=== PATIENT | female | born 1950 | race Caucasian/White ===

== ENCOUNTER → 2019-03-07 09:22 | Outpatient (CLI) | payer MEDICARE, OTHER, SELFPAY ==
--- NOTE | 2019-03-07 | DI.MG.S_ITS ---
BILATERAL DIGITAL SCREENING MAMMOGRAM 3D/2D WITH CAD: 03/07/2019 CLINICAL: Routine screening. Family history of breast cancer. Comparison is made to exams dated: 07/28/2017 mammogram, 10/22/2014 mammogram, and 10/19/2013 mammogram - [facility]. There are scattered fibroglandular elements in both breasts. Current study was also evaluated with a Computer Aided Detection (CAD) system. There is a new cluster of fine calcifications in the right breast at 1 o'clock anterior depth. There is a possible developing cluster of fine dystrophic calcifications in the left breast anterior depth medial region seen on the craniocaudal view only. No other significant masses or calcifications are seen in either breast. IMPRESSION: INCOMPLETE: NEEDS ADDITIONAL IMAGING EVALUATION The new cluster of fine calcifications in the right breast at 1 o'clock anterior depth is indeterminate. Spot magnification and lateral views are recommended. The possible developing cluster of fine dystrophic calcifications in the left breast anterior depth medial region seen on the craniocaudal view only is indeterminate. Spot magnification and lateral views are recommended. This exam was interpreted at Station ID: [id number]. NOTE: For mammograms, a report in lay terms will be sent to the patient. Approximately 15% of breast malignancies will not be visualized mammographically. In the management of a palpable breast mass, a negative mammogram must not discourage biopsy of a clinically suspicious lesion. Electronically Signed By: Bhavna velázquez/:03/07/2019 10:26:05 letter sent: Additional Imaging Needed ACR BI-RADS Category 0: Incomplete 3340F
== END ==
PROVIDERS: PCP Family Medicine; Visit Provider Family Medicine
DX: Z12.31 Encounter for screening mammogram for malignant neoplasm of breast (principal); Z80.3 Family history of malignant neoplasm of breast
CPT/HCPCS: 77063; 77067

== ENCOUNTER → 2019-03-30 08:49 | Outpatient (CLI) | payer MEDICARE, OTHER, SELFPAY ==
--- NOTE | 2019-03-30 | DI.US.S_ITS ---
LIMITED ULTRASOUND OF LEFT BREAST: 03/30/2019 CLINICAL: Patient returns today to evaluate calcifications in the left breast. Comparison is made to exams dated: 03/30/2019 mammogram, 03/07/2019 mammogram, 07/28/2017 mammogram, 10/22/2014 mammogram, 10/19/2013 mammogram, and 09/27/2011 mammogram - [facility]. Color flow and real-time ultrasound of the left breast medial aspect were performed. Duncan scale images of the real-time examination were reviewed. No underlying breast mass or abnormality is identified. There is no ultrasound correlate for the previously noted cluster of fine dystrophic calcifications in the left breast anterior depth medial region seen on the craniocaudal view only on comparison screening mammogram of 03/07/19 which persisted but were less prominent on additional diagnostic views performed earlier today 03/30/19. IMPRESSION: PROBABLY BENIGN No ultrasound correlate for the previously noted cluster of fine dystrophic calcifications in the left breast anterior depth medial region seen on screening and diagnostic mammography. A follow-up mammogram and possible ultrasound in 6 months is recommended to demonstrate stability. The patient is advised to monitor her breasts and to return sooner for re-evaluation should she feel anything grow or change. This exam was interpreted at Station ID: [id number]. Electronically Signed By: Sathish Parsons M.D. ecl/:03/30/2019 11:54:42 letter sent: Followup Recommended Ultrasound BI-RADS: 3 Probably benign
--- NOTE | 2019-03-30 | DI.MG.S_ITS ---
BILATERAL DIGITAL DIAGNOSTIC MAMMOGRAM 3D/2D WITH ADDITIONAL VIEWS: 03/30/2019 CLINICAL: Additional evaluation requested from prior study. Comparison is made to exams dated: 03/07/2019 mammogram, 07/28/2017 mammogram, and 10/22/2014 mammogram - [facility]. There are scattered fibroglandular elements in both breasts. Previously identified cluster of fine calcifications in the right breast at 1 o'clock anterior depth and cluster of fine dystrophic calcifications in the left breast anterior depth medial region seen on the craniocaudal view only on comparison screening mammogram of 03/07/19 persist but are less prominent on additional diagnostic views. IMPRESSION: INCOMPLETE: NEEDS ADDITIONAL IMAGING EVALUATION Previously identified cluster of fine calcifications in the right breast at 1 o'clock anterior depth and cluster of fine dystrophic calcifications in the left breast anterior depth medial region seen on the craniocaudal view only on comparison screening mammogram of 03/07/19 persist but are less prominent on additional diagnostic views. A bilateral diagnostic targeted ultrasound is recommended for further evaluation. This exam was interpreted at Station ID: [id number]. NOTE: For mammograms, a report in lay terms will be sent to the patient. Approximately 15% of breast malignancies will not be visualized mammographically. In the management of a palpable breast mass, a negative mammogram must not discourage biopsy of a clinically suspicious lesion. Electronically Signed By: Sathish Parsons M.D. ecl/:03/30/2019 10:37:20 ACR BI-RADS Category 0: Incomplete 3340F
--- NOTE | 2019-03-30 | DI.US.S_ITS ---
LIMITED ULTRASOUND OF RIGHT BREAST: 03/30/2019 CLINICAL: Patient returns today to evaluate calcifications in the right breast. Comparison is made to exams dated: 03/30/2019 mammogram, 03/07/2019 mammogram, 07/28/2017 mammogram, 10/22/2014 mammogram, 10/19/2013 mammogram, and 09/27/2011 mammogram - [facility]. Color flow and real-time ultrasound of the right breast 11-1 o'clock region were performed. Duncan scale images of the real-time examination were reviewed. No underlying breast mass or abnormality is identified. There is no ultrasound correlate for the previously noted cluster of fine calcifications in the right breast at 1 o'clock anterior depth on comparison screening mammogram of 03/07/19 and comparison diagnostic mammogram of 03/30/19. IMPRESSION: PROBABLY BENIGN No ultrasound correlate for the previously noted cluster of fine calcifications in the right breast at 1 o'clock anterior depth on comparison screening mammogram of 03/07/19 and comparison diagnostic mammogram of 03/30/19. A follow-up mammogram and possible ultrasound in 6 months is recommended to demonstrate stability. The patient is advised to monitor her breasts and to return sooner for re-evaluation should she feel anything grow or change. This exam was interpreted at Station ID: [id number]. Electronically Signed By: Sathish Parsons M.D. ecl/:03/30/2019 11:52:19 letter sent: Followup Recommended Ultrasound BI-RADS: 3 Probably benign
== END ==
PROVIDERS: PCP Family Medicine; Visit Provider Family Medicine
DX: R92.8 Other abnormal and inconclusive findings on diagnostic imaging of breast (principal); R92.1 Mammographic calcification found on diagnostic imaging of breast
CPT/HCPCS: 76642; 77066; G0279

== ENCOUNTER → 2019-05-25 12:08 | Outpatient (CLI) | payer MEDICARE, OTHER, SELFPAY ==
--- NOTE | 2019-05-25 | DI.US.S_ITS ---
PROCEDURE: US ABDOMEN COMPLETE INDICATIONS: PAIN TECHNIQUE: Real-time scanning was performed of the abdominal and retroperitoneal organs, with image documentation. COMPARISON: None. FINDINGS: Liver: Liver is diffusely increased in echogenicity. No focal hepatic abnormalities identified. Normal hepatic size. Gallbladder: No gallstones identified. Normal gallbladder wall. No pericholecystic fluid. Negative sonographic Holguin sign. Biliary ducts: Intrahepatic bile ducts are non-dilated. Extrahepatic bile duct caliber measures 5.1 mm. Normal is 6-7 mm or less in diameter, or 10 mm or less post-cholecystectomy. Pancreas: Visualized portions of the pancreas are sonographically normal. Spleen: Spleen is normal in size and homogeneous in echotexture. Kidneys: Kidneys are normal in size and echotexture. Right kidney measures 11.7 cm long; left kidney measures 10.6 cm long. No hydronephrosis and a 5 mm left renal calcification and 2.7 cm left renal cyst. left renal calcification. 2.7 cm simple left renal cyst.. No solid masses. Aorta: Visualized aorta is normal in caliber at less than 3 cm. Iliacs: Proximal common iliac arteries are normal in caliber at less than 2.5 cm. IVC: Intrahepatic inferior vena cava is patent. Miscellaneous: No free abdominal fluid. IMPRESSION: 1. Increased hepatic echogenicity noted possibly related to hepatic steatosis but other sources of hepatocellular disease including hepatic cirrhosis cannot be excluded. Recommend clinical correlation. 2. 5 mm nonobstructing left renal calcification and left renal cyst. Dictated by: Cesar FRANKEL Interpreted: Dwight Damico MD on 05/25/2019 at 16:49 Approved by: Dwight Damico M.D. on 05/25/2019 at 19:46
== END ==
PROVIDERS: PCP Family Medicine; Visit Provider Family Medicine
DX: R10.9 Unspecified abdominal pain (principal); N28.1 Cyst of kidney, acquired; N20.0 Calculus of kidney
CPT/HCPCS: 76700

== ENCOUNTER → 2019-06-07 13:17 | Outpatient (CLI) | payer MEDICARE, OTHER, SELFPAY ==
--- NOTE | 2019-06-07 | DI.CT.S_ITS ---
PROCEDURE: CT ABDOMEN PELVIS W CON INDICATIONS: Unspecified abdominal pain TECHNIQUE: After the administration of oral and intravenous contrast, 5 mm thick sections acquired from the diaphragms to the symphysis. 5 mm thick coronal and sagittal reformats were performed. For radiation dose reduction, the following was used: automated exposure control, adjustment of mA and/or kV according to patient size. COMPARISON: [facility], , US ABDOMEN COMPLETE, 05/25/2019, 12:15. FINDINGS: Image quality: Excellent. ABDOMEN: Lung bases: Lung bases are clear. Heart size is normal. Solid organs: Liver demonstrates hepatomegaly with steatosis. Gallbladder is unremarkable. Biliary system is non-dilated. Pancreas enhances normally. Spleen is normal in size and enhancement. No adrenal nodules. Kidneys are normal in size and enhancement, without hydronephrosis. Left renal cyst is present. Nonobstructing 4 mm left renal calculus is present. Peritoneum and bowel: Stomach, small bowel, and colon loops are normal in caliber and wall thickness. No free fluid or air. Moderate stool. No obstruction. Nodes and vessels: No retroperitoneal or mesenteric adenopathy. Aorta and inferior vena cava are normal in caliber. Miscellaneous: No ventral hernias. PELVIS: Genitourinary: Bladder wall thickness is normal. Miscellaneous: No inguinal hernias or adenopathy. Bones: No suspicious bony lesions. No vertebral body compression fractures. IMPRESSION: 1. Moderate stool suggestive of constipation. 2. Hepatic steatosis and mild hepatomegaly. Dictated by: Ani Oneal M.D. on 06/07/2019 at 17:52 Approved by: Ani Oneal M.D. on 06/07/2019 at 17:54
== END ==
PROVIDERS: PCP Family Medicine; Visit Provider Family Medicine
DX: R10.9 Unspecified abdominal pain (principal); K76.0 Fatty (change of) liver, not elsewhere classified; R16.0 Hepatomegaly, not elsewhere classified
CPT/HCPCS: 74177; Q9967

== ENCOUNTER → 2019-06-25 12:19 | Outpatient (CLI) | payer MEDICARE, OTHER, SELFPAY ==
--- NOTE | 2019-06-25 12:22 | DI.CT.S_ITS ---
PROCEDURE: CT ANGIO ABDOMEN PELVIS INDICATIONS: ABDOMINAL PAIN, FAMILY HISTORY OF INTESTINAL INFARCT TECHNIQUE: After the administration of intravenous contrast, 2.5 mm sections acquired from the diaphragm to the iliac crests. 10 mm maximum intensity projection (MIP) coronal and sagittal reformats were then performed. For radiation dose reduction, the following was used: automated exposure control. COMPARISON: [facility], CT, CT ABDOMEN PELVIS W CON, 06/07/2019, 14:04. FINDINGS: Image quality: Excellent. Extravascular tissues: Lung bases are clear. Heart size is normal. Liver is normal in size and enhancement. Gallbladder appears normal. Biliary system is non dilated. Pancreas enhances normally. Spleen is normal in size and enhancement. No adrenal nodules. Kidneys are normal in size and enhancement, without hydronephrosis. Non-opacified bowel loops demonstrate normal wall thickness and caliber. No free fluid or air. No retroperitoneal or mesenteric adenopathy. No ventral hernias. No suspicious bony abnormalities. No vertebral body compression fractures. Abdominal aorta: Normal in caliber, no evidence of stenosis involving the celiac axis or superior mesenteric artery. The renal arteries are patent and the inferior mesenteric artery is patent extending into the left lower quadrant. Mesenteric arteries: Normal. Renal arteries: Normal. IMPRESSION: Excellent visualization of the aorta and its main tributaries. The celiac access and superior mesenteric artery and also the inferior mesenteric artery are each widely patent and normal in caliber. No appreciable atherosclerotic calcific or soft plaque is present. No aneurysm is found. Excellent visualization of the solid and hollow organs of the abdomen and pelvis. Dictated by: Dwight Damico M.D. on 06/25/2019 at 14:58 Approved by: Dwight Damico M.D. on 06/25/2019 at 15:05
[2019-06-25 12:54] LABS: Estimated Glomerular Filt Rate > 60.0 mL/min (>60)
== END ==
PROVIDERS: Family Provider Family Medicine; PCP Family Medicine; Visit Provider Surgery
DX: R10.9 Unspecified abdominal pain (principal); Z83.79 Family history of other diseases of the digestive system
CPT/HCPCS: 36415; 74174; 82565; Q9967

== ENCOUNTER 2019-06-28 20:57 | Emergency (ER) | payer MEDICARE, OTHER, SELFPAY ==
[2019-06-28 21:11] VITALS: BP 139/84; PULSE 68; RESP 17; TEMP 36.6; O2SAT 96
[2019-06-28 23:45] VITALS: BP 131/75; PULSE 65; RESP 18; TEMP 36.4; O2SAT 96
--- NOTE | 2019-06-29 00:18 | ED_ITS ---
HPI - Headache General Chief Complaint: Headache Stated Complaint: reaction to colonoscopy prep Time Seen by Provider: 06/29/19 00:18 Source: patient and family (daughter) Mode of arrival: Ambulatory Limitations: no limitations History of Present Illness HPI Narrative: This is a 69-year-old female who comes to the emergency department with complaint of possible reaction or colonoscopy prep patient states she started her prep about 4:00 a.m. this evening she was having diarrhea around she can evening she developed headache. She states it is bad but not the worse headache of her life. She has had similar headache on new year's. Patient has been afebrile. She denies any vision changes, just some mild nausea no vomiting. Denies any chest pain or pressure. She was feeling anxious. She has not had any black or bloody stools but has been having diarrhea secondary to the prep. She drank about half of the prep so far she was using GoLYTELY. No urinary symptoms. No numbness, tingling or weakness, no difficulty with speech or movement. No vision changes, no photophobia. Patient contacted Dr. Rizzo who did recommend ibuprofen and rest, patient continued to have symptoms and she was encouraged to come to the ER for evaluation. Patient is on estradiol, nortriptyline. Of her esophagus she has had hand surgery. No tobacco, occasional alcohol, no illicit. Related Data Home Medications Medication Instructions Recorded Confirmed aspirin 325 mg tablet,delayed 325 mg PO DAILY 06/21/19 06/21/19 release estradiol 1 gram VAG 2XW 06/21/19 06/21/19 metronidazole 0.75 % topical cream 1 applictn TOP BID 06/21/19 06/21/19 nortriptyline 10 mg capsule 10 mg PO DAILY 06/21/19 06/21/19 Allergies Allergy/AdvReac Type Severity Reaction Status Date / Time ciprofloxacin AdvReac Cramping Verified 06/28/19 21:16 of the Muscles Review of Systems Review of Systems ROS Unobtainable: All systems reviewed & are unremarkable except as noted in HPI and below Patient History Medical History Spasm of esophagus (Acute) Surgical History History of hand surgery (Acute) Family History (Updated 06/21/19 @ 15:46 by Mami Garza LPN) Family/Other Cancer Social History Smoking Status: Never smoker alcohol intake: current Smoking Status: Never smoker alcohol intake frequency: holidays/special occasions only Substance Use Type: does not use Exam Narrative Exam Narrative: GEN: well nourished, well appearing female, alert and oriented x 3, patient appears to be in mild distress. Patient was initially sleeping but awakens easily. HEENT: Atraumatic, pupils are equal round reactive to light, extraocular movements are intact, no photophobia, nares are clear, TMs are clear with no fluid, there is no conjunctival pallor. Throat is clear without any exudates, erythema, tonsillar enlargement or uvular deviation, no facial droop. No meningeal signs. HEART: Regular rate and rhythm without murmur, clicks, rubs. LUNGS:Lungs clear to auscultation, no wheezes, rales, crackles, chest moves symmetrically ABD:bowel sounds normal, soft, non-tender, no guarding, rebound, rigidity, no masses noted, no hepatosplenomegaly :No CVA tenderness MSCL: Non-tender, no muscle atrophy, muscles strength 5/5 upper and lower extremities, full range of motion, normal gait NEURO:CN 2-12 intact, sensation normal, reflexes 2/4 upper and lower extremities. finger nose finger test normal, heel chowdhury test normal SKIN: No rashes, no petechiae. Initial Vital Signs Initial Vital Signs: Vital Signs Temperature 98 F 06/28/19 21:11 Pulse Rate 68 06/28/19 21:11 Respiratory Rate 17 06/28/19 21:11 Blood Pressure 139/84 06/28/19 21:11 Pulse Oximetry 96 06/28/19 21:11 Scores NIH Stroke Scale Level of Conciousness: Alert, keenly responsive Open/close eyes, close hand: Performs both tasks correctly Best gaze horizontal: Normal Visual callahan: No visual loss Facial palsy: Normal symetrical movement Left arm drift: No drift for full 10 sec Right arm drift: No drift for full 10 sec Left leg drift: No drift for full 10 sec Right leg drift: No drift for full 10 sec Limb ataxia: Absent Sensory on face/arms/legs: Normal, no sensory loss Best language: No aphasia, normal Dysarthria: Normal Extinction or inattention: No abnormality Course Vital Signs Vital signs: Vital Signs - 8 hr 06/28/19 23:45 Temperature 97.5 F L Pulse Rate 65 Respiratory Rate 18 Blood Pressure [Right Arm] 131/75 Pulse Oximetry 96 MDM - Headache MDM Narrative Medical decision making narrative: Discussed with patient she states her hea dache has almost entirely resolved and she is comfortable at this time. Discussed that I of amount of sure if this could be an adverse effect from the GoLYTELY prep. Patient states headaches have been noted on the side effect profile that she read. We discussed possibly doing additional workup and patient defers further eval at this time. Patient does not have any red flag symptoms at this time. We did discuss strict return precautions and if she has any discomfort or changes that make her concerned she return for re-evaluation at any time. Discharge Plan Departure Patient Disposition: Home Clinical Impression: Headache Discharge Date/Time: 06/29/19 00:50 Instructions: DI for Headache Activity Restrictions/Additional Instructions: Follow-up with your physician tomorrow for recheck. You may take an additional dose of ibuprofen and/or Tylenol overnight. Make sure you are drinking plenty of fluids. Return to the ER for fevers greater 100.4 F, sudden severe headaches, rapidly worsening headache, vision changes, persistent vomiting, passing out, persistent vomiting, new chest, shortness of breath, abdominal pain, new weakness, numbness or difficulty with movement or speech, black or bloody stools or other new or concerning symptoms. Prescriptions: No Action nortriptyline 10 mg capsule 10 mg PO DAILY RF: 0 estradiol [Estrace] 0.01 % (0.1 mg/gram) cream 1 gram VAG 2XW RF: 0 metronidazole 0.75 % cream 1 applictn TOP BID RF: 0 aspirin 325 mg tablet,delayed release (DR/EC) 325 mg PO DAILY RF: 0 Referrals: Roverto Watson MD [Primary Care Provider] - Alexandra Rizzo MD [Physician] -
== END 2019-06-29 00:50 | disposition home or self-care (01) ==
PROVIDERS: Emergency Provider Emergency Medicine; PCP Family Medicine; Referring Provider Surgery
DX: R51 Headache (principal); R19.7 Diarrhea, unspecified
CPT/HCPCS: 45380; 99152; 99153; 99281; 99282

== ENCOUNTER 2019-06-29 10:42 | Day surgery (SDC) | payer MEDICARE, OTHER, SELFPAY ==
[2019-06-29] VITALS (11 sets, daily range): BP systolic 94–124; BP diastolic 53–79; PULSE 60–71; RESP 11–20; TEMP 35.8–36.7; O2SAT 96–99; BMI 22.2
--- NOTE | 2019-06-29 | PATH_ITS ---
[facility] Accession Number: [id number] . 01 Material submitted: . colon - RANDOM SIGMOID COLON BIOPSIES . 02 Diagnosis: Sigmoid Colon, Random Biopsies: Colonic mucosa with no diagnostic abnormality. Negative for active, chronic, and microscopic colitis. Negative for dysplasia and malignancy. . MRV 07/02/2019 1144 Local . 02 Electronically signed: . Erendira Sharma MD, Pathologist NPI- [id number] . 01 Gross description: . RANDOM SIGMOID COLON BIOPSIES: Received in formalin are 3 fragment(s) of perry, soft tissue measuring 0.1 x 0.1 x 0.1 cm to 0.3 x 0.3 x 0.2 cm submitted entirely in 1 cassette(s) /[facility] [place] 06/29/20191 Local . 02 Pathologist provided ICD-10: R10.9 . 02 CPT . 321687 Performed at: 01 [facility] [address] [facility], [place], [place] [id number] MD Meng Meyers MD Phone: [phone] Performed at: 02 [facility] [address] [place], [place] [id number] MD Erendira Sharma MD Phone: [phone]
[2019-06-29] MEDS: SODIUM CHLORIDE 0.9% 1,000 ML 200 ML IV ×2 (11:23→12:42)
--- NOTE | 2019-06-29 11:46 | PM.OP.ENDO ---
Operative Date/Time/Diagnoses Date of procedure: 06/29/19 Time of procedure: 11:55 Pre-op diagnosis: Abdominal pain, change in bowel habits Procedure & Clinicians Study performed: Diagnostic colonoscopy, random biopsies with cold forceps in the sigmoid colon Same procedure as scheduled: Yes Indications: This is a patient with new onset left lower quadrant abdominal pain and explosive diarrhea starting a few months ago Surgeon: Alexandra Rizzo Procedure Notes SCOAP/Timeout: Performed Procedure in detail: The patient was brought to the room and placed in left lateral decubitus position with all bony prominences padded. A time-out was performed and then the patient was given procedural sedation starting with 2 mg of Versed and 100 mcg of fentanyl. Total of 4 mg of Versed and 150 micro g of fentanyl were used for the entire procedure. Vitals were monitored throughout the procedure and remained stable. Once adequately sedated the procedure was begun. A rectal exam was performed revealing no abnormalities. The colonoscope was then introduced to the rectum and advanced to the cecum in the usual fashion. The cecum was identified by the appendiceal orifice, the mucosal tri-fold, and the ileocecal valve. The scope was then retracted while rotating side to side and examining each mucosal fold. No significant abnormalities were seen to the entire colon. Normal mucosa was seen, normal haustral markings, and mucosal folds were seen. Random biopsies were taken in the sigmoid colon, due to the patient's complaint of new onset diarrhea and abdominal pain. At the conclusion of the procedure retroflexion was performed and small grade 1-2 internal hemorrhoids without stigmata of bleeding were seen. The scope was then withdrawn from the rectum the procedure was concluded. The patient tolerated the procedure well and was transferred to the PACU in stable condition. Scope withdrawal time: 12 Sedation minutes: 29 Specimen(s): other (Random biopsies of sigmoid colon) Complications: none Impression: Very normal appearing colon Post-procedure Recommendations: Colonscopy in 10 years and Other recommendation (Follow-up in 2 weeks to discuss biopsy results and to review other recommendation) Follow up: weeks (Two) Disposition: PACU
--- NOTE | 2019-06-29 11:46 | PM.PREOP ---
Pre-operative Note Interval Note History & Physical reviewed/Exam performed by Physician: Yes Changes to H&P: No ASA Class (for procedural sedation): II
[2019-06-29] MEDS: MIDAZOLAM 5 MG/5 ML VIAL IV (12:23)
[2019-06-29] MEDS: fentaNYL 250 MCG/5 ML INJ IV (12:24)
== END 2019-06-29 13:24 | disposition home or self-care (01) ==
PROVIDERS: PCP Family Medicine; Visit Provider Surgery
PROC: 0DJD8ZZ Inspection of Lower Intestinal Tract, Via Natural or Artificial Opening Endoscopic (ICD-10-PCS; CPT 45378; principal; 2019-06-29 11:45)
DX: R10.9 Unspecified abdominal pain (principal); R19.4 Change in bowel habit
CPT/HCPCS: 45380; 99152; 99153; J2250; J3010

== ENCOUNTER → 2019-11-09 10:21 | Outpatient (CLI) | payer MEDICARE, OTHER, SELFPAY ==
[2019-11-10 20:37] LABS: Endomysial AB IGA Negative (Negative)
[2019-11-11 15:13] LABS: Anti Gliadin IgG Ab 2 units (0-19); Gliadin Gluten IgA 7 units (0-19)
== END ==
PROVIDERS: PCP Family Medicine; Referring Provider Internal Medicine Gastroenterology; Visit Provider Internal Medicine Gastroenterology
DX: R19.4 Change in bowel habit (principal); R10.9 Unspecified abdominal pain
CPT/HCPCS: 36415; 83516; 86255

== ENCOUNTER → 2019-11-10 11:00 | Outpatient (CLI) | payer MEDICARE, OTHER, SELFPAY ==
[2019-11-13 12:08] LABS: Calprotectin, Stool 32 ug/g (0-120)
== END ==
PROVIDERS: PCP Family Medicine; Referring Provider Internal Medicine Gastroenterology; Visit Provider Internal Medicine Gastroenterology
DX: R19.4 Change in bowel habit (principal); R10.9 Unspecified abdominal pain
CPT/HCPCS: 83993

== ENCOUNTER → 2019-12-07 09:09 | Outpatient (CLI) | payer MEDICARE, OTHER, SELFPAY ==
--- NOTE | 2019-12-07 | DI.CT.S_ITS ---
PROCEDURE: CT ABDOMEN PELVIS W CON INDICATIONS: Abdominal distension, change in bowel movements TECHNIQUE: After the administration of intravenous contrast, 5 mm thick sections acquired from the diaphragm to the symphysis. 5 mm coronal and sagittal reformats were acquired. For radiation dose reduction, the following was used: automated exposure control, adjustment of mA and/or kV according to patient size. COMPARISON: [facility], CT, CT ABDOMEN PELVIS W CON, 06/07/2019, 14:04. FINDINGS: Image quality: Excellent. ABDOMEN: Lung bases: Lung bases are clear. Heart size is normal. Solid organs: Liver is normal in size and enhancement. Diffusely decreased hepatic density. Gallbladder is within normal limits. Biliary system is non dilated. Pancreas enhances normally. Spleen is normal in size and enhancement. No adrenal nodules. Kidneys demonstrate normal size and enhancement, without hydronephrosis. Nonobstructing calculi within the left interpolar kidney measuring 6 mm and within the superior pole left kidney measuring 2 mm are present. Peritoneum and bowel: Bowel loops demonstrate normal wall thickness and caliber. There is fluid throughout the stomach, small bowel, and right colon. Moderate stool throughout the remainder of the colon. Appendix is not seen. No evidence of appendicitis. No free fluid or air. Nodes and vessels: No retroperitoneal or mesenteric adenopathy by size criteria. Aorta and inferior vena cava are normal in size. Miscellaneous: No ventral hernias. PELVIS: Genitourinary: Bladder wall thickness is normal. Miscellaneous: No inguinal hernias or adenopathy. Bones: No suspicious bony lesions. No vertebral body compression fractures. IMPRESSION: 1. Fluid filled bowel, compatible with gastroenteritis. 2. Nonobstructing left renal calculi. 3. Hepatic steatosis. 4. Appendix not seen. No evidence of appendicitis. Dictated by: Cedric Riggs M.D. on 12/07/2019 at 11:04 Approved by: Cedric Riggs M.D. on 12/07/2019 at 11:07
[2019-12-07 09:49] LABS: BUN Creatinine Ratio 14.5 (6-22); Blood Urea Nitrogen 8 mg/dL (7-17); Estimated Glomerular Filt Rate > 60.0 mL/min (>60)
== END ==
PROVIDERS: PCP Family Medicine; Referring Provider Internal Medicine Gastroenterology; Visit Provider Internal Medicine Gastroenterology
DX: R19.4 Change in bowel habit (principal); R14.0 Abdominal distension (gaseous); R10.9 Unspecified abdominal pain; N20.0 Calculus of kidney; K76.0 Fatty (change of) liver, not elsewhere classified
CPT/HCPCS: 36415; 74177; 82565; 84520; Q9967

== ENCOUNTER → 2020-01-23 14:05 | Outpatient (CLI) | payer MEDICARE, OTHER, SELFPAY ==
--- NOTE | 2020-01-23 14:19 | DI.MG.S_ITS ---
Patient Name: MARLENI COVARRUBIAS date: 1950 Sex: F Attending Physician: Shirley Indications: Date: 01/23/2020 14:10 At the request of: MERLYN SCHAFFER Procedure: MM diagnostic mammo BI BILATERAL DIGITAL DIAGNOSTIC MAMMOGRAM 3D/2D SHORT-TERM FOLLOW-UP: 01/23/2020 CLINICAL: Patient returns for short term follow up of bilateral breasts. Comparison is made to exams dated: 03/30/2019 mammogram, 03/07/2019 mammogram, 07/28/2017 mammogram, and 10/22/2014 mammogram - [facility]. There are scattered fibroglandular elements in both breasts. There is a group of fine punctate calcifications in the right breast at 1 o'clock anterior depth. This is not significantly changed. The previously described possible developing cluster of fine punctate calcifications in the left breast anterior depth medial region seen on the craniocaudal view only appears less prominent. No other significant masses or calcifications are seen in either breast. IMPRESSION: PROBABLY BENIGN The grouped fine punctate calcifications in the right breast at 1 o'clock anterior depth have remained stable for approximately one year and are probably benign. The previously described possible grouped fine punctate calcifications in the left breast anterior depth medial region seen on the craniocaudal view only appear less prominent and are probably benign. A follow-up mammogram to include spot magnification views in 12 months is recommended. Findings and recommendations were conveyed to the patient during today's visit. This exam was interpreted at Station ID: [id number]. NOTE: For mammograms, a report in lay terms will be sent to the patient. Approximately 15% of breast malignancies will not be visualized mammographically. In the management of a palpable breast mass, a negative mammogram must not discourage biopsy of a clinically suspicious lesion. Continued Report - Page 2 of 2 Patient Name: MARLENI COVARRUBIAS date: 1950 Sex: F Attending Physician: Shirley Indications: Date: 01/23/2020 14:10 At the request of: MERLYN SCHAFFER Procedure: MM diagnostic mammo BI Electronically Signed By: Cain Ochoa M.D. aty/:01/23/2020 14:54:45 letter sent: Followup Recommended ACR BI-RADS Category 3: Probably benign 3343F
== END ==
PROVIDERS: PCP Family Medicine; Referring Provider Family Medicine; Visit Provider Family Medicine
DX: R92.8 Other abnormal and inconclusive findings on diagnostic imaging of breast (principal); R92.1 Mammographic calcification found on diagnostic imaging of breast
CPT/HCPCS: 77066; G0279

== ENCOUNTER → 2020-02-26 11:38 | Outpatient (CLI) | payer MEDICARE, OTHER, SELFPAY ==
--- NOTE | 2020-02-26 | DI.US.S_ITS ---
PROCEDURE: US ABDOMEN LIMITED INDICATIONS: RIGHT UPPER QUADRANT PAIN TECHNIQUE: Real-time focused scanning was performed of the abdomen, with image documentation. COMPARISON: [facility], CT, CT ABDOMEN PELVIS W CON, 12/07/2019, 10:36. [facility], US, US ABDOMEN COMPLETE, 05/25/2019, 12:15. FINDINGS: The liver is normal in size and demonstrates no focal lesions. Increased generalized liver echogenicity can be seen. The main portal vein is patent and demonstrates normal size. Normal appearing hepatopetal flow can be seen. Several shadowing gallstones are seen, which do not appear mobile. The largest of these measures 1.2 cm. The gallbladder wall is not thickened, measuring 3 mm or less. No specific pericholecystic fluid is seen. The sonographic Holguin sign is negative. There is no biliary dilatation, the common bile duct measures 6 mm. The visualized pancreas is unremarkable. IMPRESSION: Gallstones are seen, yet without additional sonographic signs of cholecystitis. Negative for biliary dilatation. Please correlate with physical examination findings, patient presentation, and laboratory values. The liver demonstrates increased echogenicity. This finding is nonspecific, yet it is most commonly attributed to fatty infiltration. Dictated by: Rich Hammond M.D. on 02/26/2020 at 12:34 Approved by: Rich Hammond M.D. on 02/26/2020 at 12:35
== END ==
PROVIDERS: PCP Family Medicine; Referring Provider Family Medicine; Visit Provider Family Medicine
DX: R10.11 Right upper quadrant pain (principal); K80.20 Calculus of gallbladder without cholecystitis without obstruction
CPT/HCPCS: 76705

== ENCOUNTER → 2020-03-12 09:18 | Outpatient (CLI) | payer MEDICARE, OTHER, SELFPAY ==
--- NOTE | 2020-03-12 | DI.NM.S_ITS ---
PROCEDURE: NM HIDA WITH CCK PHARMACEUTICAL: 5.4 mCi Tc-99m mebrofenin IV; 1.4 mcg CCK IV. INDICATIONS: ABDOMINAL PAIN TECHNIQUE: Following intravenous administration of Tc-99m mebrofenin, sequential anterior abdominal images were obtained. To evaluate the contractile response of the gallbladder in response to Cholecystokinin (CCK), sincalide (0.02 ?g/kg) was administered by slow intravenous infusion approximately 60 minutes after the administration of the radiopharmaceutical. Sequential imaging was continued for 30 minutes after the start of CCK infusion. Gallbladder ejection fraction was calculated. COMPARISON: [facility], ABDOMEN LIMITED, 02/26/2020, 11:55. FINDINGS: Biliary scan: There is normal tracer uptake and excretion by the liver. There is normal visualization of the intrahepatic ducts, common bile duct, and gallbladder. There is normal tracer transit into the duodenum. CCK stimulation: There is decreased contractile response of the gallbladder to CCK infusion. The calculated gallbladder ejection fraction is 11% ; normal values are above 35%. It has been shown that any patient abdominal pain after CCK administration is related to the rate of CCK injection, rather than to any underlying gallbladder disease (Clinical Nuclear Medicine 2012; 37: 63-70. Journal of Nuclear Medicine 2014; 55: 1-9). IMPRESSION: Decreased gallbladder ejection fraction as above raising possibility of chronic or acute on chronic cholecystitis. Please correlate clinically and with LFTs. Dictated by: Shon Green M.D. on 03/12/2020 at 13:17 Approved by: Shon Green M.D. on 03/12/2020 at 13:19
== END ==
PROVIDERS: PCP Family Medicine; Referring Provider Family Medicine; Visit Provider Family Medicine
DX: R10.9 Unspecified abdominal pain (principal)
CPT/HCPCS: 78227; A9537; J2805

== ENCOUNTER → 2020-11-10 12:34 | Outpatient (CLI) | payer MEDICARE, OTHER, SELFPAY ==
--- NOTE | 2020-11-10 | DI.RAD.S_ITS ---
PROCEDURE: XR ABDOMEN 1V INDICATIONS: IRRITABLE BOWEL SYNDROME WITH CONSTIPATION TECHNIQUE: One view of the abdomen acquired. COMPARISON: None. FINDINGS: Surgical changes and devices: None. Bowel: Large amount of diffuse stool is seen. No transition point identified. No air-fluid levels identified. Soft tissues: No suspicious abdominal calcifications. Visualized solid organ contours appear normal in size. Bones: Dextroscoliosis, with multilevel spondylitic changes and facet arthropathy. IMPRESSION: Large amount of stool. No specific transition point seen at this time although if the patient's symptoms do not improve, continued surveillance with abdominal series radiographs could be performed. Dictated by: Shon Green M.D. on 11/10/2020 at 13:56 Approved by: Shon Green M.D. on 11/10/2020 at 13:57
== END ==
PROVIDERS: PCP Family Medicine; Referring Provider Registered Nurse; Visit Provider Registered Nurse
DX: K58.1 Irritable bowel syndrome with constipation (principal)
CPT/HCPCS: 74018

== ENCOUNTER → 2021-01-28 09:23 | Outpatient (CLI) | payer MEDICARE, OTHER, SELFPAY ==
--- NOTE | 2021-01-28 | DI.MG.S_ITS ---
BILATERAL DIGITAL DIAGNOSTIC MAMMOGRAM 3D/2D: 01/28/2021 CLINICAL: 1 year follow up from prior exam. Comparison is made to exams dated: 01/23/2020 mammogram, 03/30/2019 mammogram, and 03/07/2019 mammogram - [facility]. There are scattered fibroglandular elements in both breasts. The cluster of fine punctate calcifications in the right breast at 1 o'clock anterior depth is no longer seen. The possible developing benign cluster of fine punctate calcifications in the left breast anterior depth medial region seen on the craniocaudal view only have resolved. No other significant masses or calcifications are seen in either breast. IMPRESSION: BENIGN Resolution of microcalcifications in each breast. There is no mammographic evidence of malignancy. Return to annual mammogram screening schedule is recommended. Findings and recommendations were conveyed to the patient at time of exam. This exam was interpreted at Station ID: [id number]. NOTE: For mammograms, a report in lay terms will be sent to the patient. Approximately 15% of breast malignancies will not be visualized mammographically. In the management of a palpable breast mass, a negative mammogram must not discourage biopsy of a clinically suspicious lesion. Electronically Signed By: Bhavna velázquez/:01/28/2021 10:33:35 letter sent: Normal Exam ACR BI-RADS Category 2: Benign Finding(s) 3342F
== END ==
PROVIDERS: PCP Family Medicine; Referring Provider Family Medicine; Visit Provider Family Medicine
DX: R92.8 Other abnormal and inconclusive findings on diagnostic imaging of breast (principal); N63.10 Unspecified lump in the right breast, unspecified quadrant; M85.851 Other specified disorders of bone density and structure, right thigh; Z78.0 Asymptomatic menopausal state; Z82.62 Family history of osteoporosis
CPT/HCPCS: 77066; 77080; G0279

== ENCOUNTER → 2021-04-17 09:09 | Outpatient (CLI) | payer MEDICARE, OTHER, SELFPAY ==
[2021-04-17 10:22] LABS: Add Manual Diff / Slide Review NO; Basophils Absolute Auto 0 /uL (0-100); Basophils Percent Auto 0.4 % (0-2); Eosinophils Absolute Auto 0 /uL (0-450); Eosinophils Percent Auto 0.5 % (2-4); Hematocrit 40.5 % (36-46); Hemoglobin 13.9 g/dL (12.0-16.0); Lymphocytes Absolute Auto 1500 /uL (1100-4500); Lymphocytes Percent Auto 24.6 % (25-40); Mean Corpuscular HGB Conc 34.3 % (30-36); Mean Corpuscular Hemoglobin 33.2 PG (26-34); Mean Corpuscular Volume 96.9 fL (80-100); Monocytes Absolute Auto 500 /uL (0-900); Monocytes Percent Auto 8.5 % (3-14); Neutrophils Absolute Auto 4000 /uL (1500-7000); Platelet Count 221 X10^3/uL (150-400); Red Blood Cell Count 4.17 X10^6/uL (4.0-5.2); Red Cell Distribution Width 12.3 % (11.6-14.8); White Blood Cell Count 6.1 X10^3/uL (4.5-11.0)
[2021-04-17 10:26] LABS: Alanine Aminotransferase 23 IU/L (<35); Albumin 4.5 g/dL (3.5-5.0); Albumin Globulin Ratio 1.8 (1.0-2.8); Alkaline Phosphatase 92 U/L (38-126); Aspartate Aminotransferase 26 IU/L (14-36); BUN Creatinine Ratio 17.5 (6-22); Bilirubin Total 0.6 mg/dL (0.2-1.3); Blood Urea Nitrogen 10 mg/dL (7-17); Calcium 9.8 mg/dL (8.4-10.2); Carbon Dioxide 27 mmol/L (22-32); Chloride 103 mmol/L (98-107); Cholesterol 256 mg/dL (140-199); Estimated Glomerular Filt Rate > 60.0 mL/min (>60); Globulin 2.5 g/dL (1.7-4.1); Glucose 92 mg/dL (80-110); HDL Cholesterol 73 mg/dL (40-60); HEMOLYSIS < 15 (0-50); LDL Cholesterol Calculated 154 mg/dL (<100); Potassium 4.5 mmol/L (3.4-5.1); Sodium 138 mmol/L (137-145); Triglycerides 147 mg/dL (35-150); VLDL Cholesterol Calculated 29 mg/dL (2-30)
[2021-04-17 10:55] LABS: Thyroid Stimulating Hormone 0.892 uIU/mL (0.47-4.68)
== END ==
PROVIDERS: PCP Family Medicine; Referring Provider Family Medicine; Visit Provider Family Medicine
DX: E78.5 Hyperlipidemia, unspecified (principal)
CPT/HCPCS: 36415; 80053; 80061; 84443; 85025

== ENCOUNTER → 2022-01-27 16:36 | Outpatient (CLI) | payer MEDICARE, OTHER, SELFPAY ==
--- NOTE | 2022-01-27 16:42 | DI.RAD.S_ITS ---
PROCEDURE: XR CHEST 2V INDICATIONS: Chest pain TECHNIQUE: 2 views of the chest were acquired. COMPARISON: None. FINDINGS: Surgical changes and devices: None. Lungs and pleura: Lungs are clear. No pleural effusions or pneumothorax. Mediastinum: Mediastinal contours are normal. Heart size is normal. Bones and chest wall: No suspicious bony abnormalities. Soft tissues appear unremarkable. IMPRESSION: No acute cardiopulmonary abnormality. Dictated by: Ollie Kong M.D. on 01/28/2022 at 8:06 Approved by: Ollie Kong M.D. on 01/28/2022 at 8:07
[2022-01-27 17:50] LABS: Add Manual Diff / Slide Review NO; Basophils Absolute Auto 0 /uL (0-100); Basophils Percent Auto 0.3 % (0-2); Eosinophils Absolute Auto 100 /uL (0-450); Eosinophils Percent Auto 1.2 % (2-4); Hematocrit 38.9 % (36-46); Hemoglobin 13.4 g/dL (12.0-16.0); Lymphocytes Absolute Auto 2400 /uL (1100-4500); Lymphocytes Percent Auto 31.2 % (25-40); Mean Corpuscular HGB Conc 34.5 % (30-36); Mean Corpuscular Hemoglobin 32.7 PG (26-34); Mean Corpuscular Volume 94.9 fL (80-100); Monocytes Absolute Auto 700 /uL (0-900); Monocytes Percent Auto 9.4 % (3-14); Neutrophils Absolute Auto 4400 /uL (1500-7000); Neutrophils Percent Auto 57.9 % (50-75); Platelet Count 235 X10^3/uL (150-400); Red Cell Distribution Width 12.7 % (11.6-14.8); White Blood Cell Count 7.6 X10^3/uL (4.5-11.0)
[2022-01-27 18:19] LABS: Erythrocyte Sedimentation Rate 17 MM/HR (0-20)
[2022-01-27 18:38] LABS: Alanine Aminotransferase 24 IU/L (<35); Albumin 4.4 g/dL (3.5-5.0); Albumin Globulin Ratio 1.4 (1.0-2.8); Alkaline Phosphatase 91 U/L (38-126); Aspartate Aminotransferase 29 IU/L (14-36); BUN Creatinine Ratio 18.5 (6-22); Bilirubin Total 0.4 mg/dL (0.2-1.3); Blood Urea Nitrogen 10 mg/dL (7-17); C-Reactive Protein Quant < 0.5 mg/dL (<1.0); Calcium 9.4 mg/dL (8.4-10.2); Carbon Dioxide 27 mmol/L (22-32); Chloride 102 mmol/L (98-107); Estimated Glomerular Filt Rate > 60 mL/min (>60); Globulin 3.1 g/dL (1.7-4.1); Glucose 85 mg/dL (80-110); HEMOLYSIS < 15 (0-50); Potassium 4.1 mmol/L (3.4-5.1); Sodium 135 mmol/L (137-145); Total Protein 7.5 g/dL (6.3-8.2)
[2022-01-27 20:34] LABS: Monotest Negative (Negative)
[2022-01-27 20:35] LABS: Appearance Urine UA CLEAR; Bilirubin Urine UA NEGATIVE (NEGATIVE); Color Urine UA YELLOW; Glucose Urine UA NEGATIVE (Negative); Ketones Urine UA NEGATIVE (NEGATIVE); Leukocyte Esterase Urine UA NEGATIVE (NEGATIVE); Nitrite Urine UA NEGATIVE (Negative); Occult Blood Urine UA NEGATIVE (Negative); Protein Urine UA NEGATIVE (Negative); Specific Gravity Urine UA <=1.005 (1.000-1.035); Urobilinogen Urine UA 0.2 E.U./dL (0.2)
[2022-01-27 21:45] LABS: RBC Urine None Seen (0-5/HPF); WBC Urine None Seen (0-5/HPF)
[2022-01-27 21:46] LABS: Bacteria Urine None Seen; Culture Indicated Urine Cult Not Indicated; Squamous Epithelial Cell Urine 0-1 /HPF (0-5/HPF)
== END ==
PROVIDERS: PCP Family Medicine; Referring Provider Family Medicine; Visit Provider Family Medicine
DX: R07.89 Other chest pain (principal); R53.83 Other fatigue
CPT/HCPCS: 36415; 71046; 80053; 81001; 82306; 84443; 85025; 85651; 86140; 86318

== ENCOUNTER → 2022-04-21 13:47 | Outpatient (CLI) | payer MEDICARE, OTHER, SELFPAY ==
--- NOTE | 2022-04-21 | DI.MG.S_ITS ---
BILATERAL DIGITAL SCREENING MAMMOGRAM 3D/2D WITH CAD: 04/21/2022 CLINICAL: Routine screening. Family history of breast cancer. Comparison is made to exams dated: 01/28/2021 mammogram, 01/23/2020 mammogram, 03/30/2019 ultrasound, 03/30/2019 ultrasound, 03/30/2019 mammogram, and 03/07/2019 mammogram - [facility]. There are scattered areas of fibroglandular density in both breasts (category b / 25%-50% glandular tissue). Current study was also evaluated with a Computer Aided Detection (CAD) system. There is a focal asymmetry in the right breast at 11 o'clock middle depth. No other significant masses, calcifications, or other findings are seen in either breast. IMPRESSION: INCOMPLETE: NEEDS ADDITIONAL IMAGING EVALUATION The focal asymmetry in the right breast is indeterminate. Additional views with possible ultrasound are recommended. Based on the Tyrer Cuzick model (a risk assessment model) the patient's lifetime risk is 8.6% and her 10 year risk is 5.9%. According to the ACR, ACS, and NCCN guidelines, an annual breast MRI exam along with mammogram is recommended if the patient's lifetime risk is 20% or greater. This exam was interpreted at Station ID: [id number]. NOTE: For mammograms, a report in lay terms will be sent to the patient. Approximately 15% of breast malignancies will not be visualized mammographically. In the management of a palpable breast mass, a negative mammogram must not discourage biopsy of a clinically suspicious lesion. Electronically Signed By: Jody núñez/vikki:04/21/2022 16:26:09 letter sent: Additional Imaging Needed ACR BI-RADS Category 0: Incomplete 3340F
== END ==
PROVIDERS: PCP Family Medicine; Referring Provider Family Medicine; Visit Provider Family Medicine
DX: Z12.31 Encounter for screening mammogram for malignant neoplasm of breast (principal); Z80.3 Family history of malignant neoplasm of breast
CPT/HCPCS: 77063; 77067

== ENCOUNTER → 2022-06-14 08:41 | Outpatient (CLI) | payer MEDICARE, OTHER, SELFPAY ==
--- NOTE | 2022-06-14 | DI.MG.S_ITS ---
UNILATERAL RIGHT DIGITAL DIAGNOSTIC MAMMOGRAM 3D/2D WITH ADDITIONAL VIEWS: 06/14/2022 CLINICAL: Additional evaluation requested from prior study. Comparison is made to exams dated: 04/21/2022 mammogram, 01/28/2021 mammogram, and 03/07/2019 mammogram - [facility]. There are scattered areas of fibroglandular density in the right breast (category b / 25%-50% glandular tissue). Redemonstration of previously described focal asymmetry in the right breast at 11 o'clock middle depth. This is not confirmed in additional views and appears much less prominent. It is decreased in size. No other significant masses or calcifications are seen in the breast. IMPRESSION: INCOMPLETE: NEEDS ADDITIONAL IMAGING EVALUATION The possible focal asymmetry in the right breast most likely represents fibroglandular tissue but is indeterminate. An ultrasound is recommended for further evaluation and is scheduled to immediately follow this examination. Based on the Tyrer Cuzick model (a risk assessment model) the patient's lifetime risk is 8.6% and her 10 year risk is 5.9%. According to the ACR, ACS, and NCCN guidelines, an annual breast MRI exam along with mammogram is recommended if the patient's lifetime risk is 20% or greater. This exam was interpreted at Station ID: [id number]. NOTE: For mammograms, a report in lay terms will be sent to the patient. Approximately 15% of breast malignancies will not be visualized mammographically. In the management of a palpable breast mass, a negative mammogram must not discourage biopsy of a clinically suspicious lesion. Electronically Signed By: Cain Ochoa M.D. aty/:06/14/2022 09:42:22 ACR BI-RADS Category 0: Incomplete 3340F
--- NOTE | 2022-06-14 | DI.US.S_ITS ---
ULTRASOUND OF RIGHT BREAST: 06/14/2022 CLINICAL: Patient returns today to evaluate a focal asymmetry in the right breast. Comparison is made to exams dated: 06/14/2022 mammogram, 04/21/2022 mammogram, 01/28/2021 mammogram, and 01/23/2020 mammogram - [facility]. Real-time ultrasound of the right breast was performed. Duncan scale images of the real-time examination were reviewed. No significant abnormalities were seen sonographically in the right breast. IMPRESSION: NEGATIVE There is no sonographic evidence of malignancy. There is no abnormality seen in the right breast to correspond with the mammography finding which likely represents normal fibroglandular tissue. A 1 year screening mammogram is recommended. Findings and recommendations were conveyed to the patient during today's evaluation. This exam was interpreted at Station ID: [id number]. Electronically Signed By: Cain Ochoa M.D. aty/:06/14/2022 09:43:14 letter sent: Normal Exam Ultrasound BI-RADS: 1 Negative
== END ==
PROVIDERS: PCP Family Medicine; Referring Provider Family Medicine; Visit Provider Family Medicine
DX: R92.8 Other abnormal and inconclusive findings on diagnostic imaging of breast (principal)
CPT/HCPCS: 76642; 77065; G0279

== ENCOUNTER → 2023-07-04 09:50 | Outpatient (CLI) | payer MEDICARE, OTHER, SELFPAY ==
--- NOTE | 2023-07-04 09:53 | DI.MG.S_ITS ---
BILATERAL DIGITAL SCREENING MAMMOGRAM 3D/2D WITH CAD: 07/04/2023 CLINICAL: Routine screening. Family history of breast cancer. Comparison is made to exams dated: 06/14/2022 mammogram, 04/21/2022 mammogram, 01/28/2021 mammogram, and 01/23/2020 mammogram - [facility]. There are scattered areas of fibroglandular density in both breasts (category b / 25%-50% glandular tissue). Current study was also evaluated with a Computer Aided Detection (CAD) system. No significant masses, calcifications, or other findings are seen in either breast. There has been no significant interval change. IMPRESSION: NEGATIVE There is no mammographic evidence of malignancy. A 1 year screening mammogram is recommended. Based on the Tyrer Cuzick model (a risk assessment model) the patient's lifetime risk is 8.1% and her 10 year risk is 6.1%. According to the ACR, ACS, and NCCN guidelines, an annual breast MRI exam along with mammogram is recommended if the patient's lifetime risk is 20% or greater. This exam was interpreted at Station ID: [id number]. NOTE: For mammograms, a report in lay terms will be sent to the patient. Approximately 15% of breast malignancies will not be visualized mammographically. In the management of a palpable breast mass, a negative mammogram must not discourage biopsy of a clinically suspicious lesion. Electronically Signed By: Jody núñez/vikki:07/04/2023 13:48:27 letter sent: Normal Exam ACR BI-RADS Category 1: Negative 3341F
== END ==
PROVIDERS: PCP Family Medicine; Referring Provider Family Medicine; Visit Provider Family Medicine
DX: Z12.31 Encounter for screening mammogram for malignant neoplasm of breast (principal); Z80.3 Family history of malignant neoplasm of breast; R92.323 Mammographic fibroglandular density, bilateral breasts
CPT/HCPCS: 77063; 77067

== ENCOUNTER → 2023-08-01 12:40 | Outpatient (CLI) | payer MEDICARE, OTHER, SELFPAY ==
--- NOTE | 2023-08-01 12:43 | DI.RAD.S_ITS ---
PROCEDURE: XR LUMBAR SPINE 2-3V INDICATIONS: LOW BACK PAIN TECHNIQUE: 3 views of the lumbar spine were acquired. COMPARISON: None. FINDINGS: Bones: 5 nem-xel-[id number] vertebrae are present. Dextrocurvature of the lumbar spine. Mild retrolisthesis of L1 on L2 and L2 on L3. Diffusely decreased osseous mineralization. There is multilevel facet arthropathy, worse at L4-5 and L5-S1. Mild multilevel disc height loss with degenerative endplate changes and spurring is present. No vertebral body compression fractures. No suspicious bony lesions. Soft tissues: Overlying bowel gas pattern is normal. No suspicious soft tissue calcifications. IMPRESSION: Multilevel degenerative changes of the lumbar spine with dextrocurvature. Dictated by: Jeff Perales M.D. on 08/01/2023 at 14:20 Approved by: Jeff Perales M.D. on 08/01/2023 at 14:23
== END ==
PROVIDERS: PCP Family Medicine; Referring Provider Family Medicine; Visit Provider Family Medicine
DX: M47.816 Spondylosis without myelopathy or radiculopathy, lumbar region (principal); M47.817 Spondylosis without myelopathy or radiculopathy, lumbosacral region; M54.50 Low back pain, unspecified
CPT/HCPCS: 72100

== ENCOUNTER → 2024-01-06 16:11 | Outpatient (CLI) | payer MEDICARE, OTHER, SELFPAY ==
--- NOTE | 2024-01-06 16:12 | DI.US.S_ITS ---
PROCEDURE: US PELVIC COMPLETE INDICATIONS: PELVIC PAIN / BRCA2 POSITIVE TECHNIQUE: Real-time scanning was performed of the pelvic organs, with image documentation. Additional endovaginal scanning was necessary due to incomplete visualization of the adnexal and endometrial structures by transabdominal scanning. COMPARISON: None. FINDINGS: Uterus: Uterus is retroverted and normal in size at 7.1 x 4.8 x 3.9 cm. The myometrium is homogeneous. The endometrium measures 2 mm combined thickness. Myometrial cyst anteriorly measuring 4 millimeters. Ovaries: The right ovary measures 2.1 x 1.1 x 1.1 cm, with a calculated ovarian volume of 1.3 cc. The left ovary measures 1.4 x 0.8 x 1.0 cm, with a calculated ovarian volume of 0.6 cc. The ovaries have a normal sonographic appearance. Less than 12 follicles can be seen in each ovary. No adnexal masses are seen. Other: No pathologic free abdominal or pelvic fluid. IMPRESSION: Small myometrial cyst measuring 4 millimeters. Otherwise, age-appropriate appearance of the uterus and ovaries. No cause for patient's pain is identified. We strive to produce accurate, complete, and clear reports of imaging services. To assist us in improving patient care, this report was composed using standard report templates and voice recognition software. Therefore, it may contain abnormal punctuation, insertions and/or omissions. Occasional wrong-word or sound-alike substitutions may occur. Though we review the report and make efforts to correct it, we do recommend that the report be read carefully in proper context to recognize any text inaccuracies. Dictated by: Jeff Perales M.D. on 01/08/2024 at 10:20 Approved by: Jeff Perales M.D. on 01/08/2024 at 10:22
== END ==
PROVIDERS: PCP Family Medicine; Referring Provider Obstetrics & Gynecology; Visit Provider Obstetrics & Gynecology
DX: N85.8 Other specified noninflammatory disorders of uterus (principal); R10.2 Pelvic and perineal pain; Z15.01 Genetic susceptibility to malignant neoplasm of breast; Z15.09 Genetic susceptibility to other malignant neoplasm
CPT/HCPCS: 76830; 76856

== ENCOUNTER → 2024-09-13 14:14 | Outpatient (CLI) | payer MEDICARE, OTHER, SELFPAY ==
--- NOTE | 2024-09-13 14:15 | DI.MG.S_ITS ---
MM screening mammo BI: 09/13/2024. BI-RADS: 1 CLINICAL: 74-year old female for bilateral screening mammogram. Tyrer-Cuzick lifetime risk of 24.7%. No personal or first-degree family history of breast cancer. Current reported family history of breast cancer: paternal aunt. History of ovarian cancer in one first-degree relative. The patient is a BRCA2 gene mutation carrier. PRIOR EXAMS 07/04/2023, 06/14/2022, 04/21/2022, 01/28/2021, 01/23/2020, 03/30/2019, 03/07/2019, 07/28/2017, 10/22/2014. MAMMOGRAPHY TECHNIQUE: 2D and 3D (tomosynthesis) digital mammographic views obtained, with additional images as needed for full coverage. Current study was also evaluated with a Computer Aided Detection (CAD) system. DENSITY B. There are scattered areas of fibroglandular density. MAMMOGRAPHY FINDINGS Bilateral: No suspicious mass, asymmetry, microcalcification, or other abnormality seen. No significant change from comparison. IMPRESSION: * No evidence of malignancy. RECOMMENDATIONS Bilateral * According to the Tyrer-Cuzick Risk Assessment Model, based on the information provided your patient has a greater than 20% lifetime risk for developing breast cancer. Consider supplemental screening with breast MRI and participation in a high risk screening program. * Annual screening mammography. OVERALL ASSESSMENT CATEGORY BI-RADS-1: Negative. The [employer] recommends annual screening mammography beginning at age 40 for women with average risk of breast cancer. ELECTRONICALLY SIGNED: Anitha Tyler M.D. on 09/14/2024 at 11:56:05 AM PT Interpreting Station ID: [id number]
== END ==
PROVIDERS: PCP Family Medicine; Referring Provider Family Medicine; Visit Provider Family Medicine
DX: Z12.31 Encounter for screening mammogram for malignant neoplasm of breast (principal); Z80.3 Family history of malignant neoplasm of breast; Z80.41 Family history of malignant neoplasm of ovary; Z15.01 Genetic susceptibility to malignant neoplasm of breast
CPT/HCPCS: 77063; 77067